=== PATIENT | female | born 2000 | race Caucasian/White ===

== ENCOUNTER 2021-06-10 05:43 | Outpatient (CLI) | payer BC ==
[2021-06-10 07:06] VITALS: BP 123/62; PULSE 75; RESP 16; TEMP 97
--- NOTE | 2021-06-10 12:06 | P.MSEPDOC ---
Presenting Problems - Arrival Data Date of Arrival on Unit: 06/10/21 Time of Arrival on Unit: 05:43 Mode of Transport: Wheelchair - Complaint OB-Reason for Admission/Chief Complaint: Rule Out SROM Comment: Patient presents to triage with complaints of possible rupture of membranes around 0330 this am for what she thinks is clear fluid, states she had intercourse around 0200 this am, patient denies needing to wear a pad in, just that she noted her underwear to be wet. Medical History - Information : 2 Para: 1 Term: 1 : 0 Abortions: Spontaneous or Elective: 0 Number of Living Children: 1 - Gestational Age Gestational Age by ROBYN (wks/days): 38 Weeks and 1 Days - History Complications: GDM Comment: Diet controlled Review of Systems - Review of Systems Constitutional: No problems Breast: No problems ENT: No problems Cardiovascular: No problems Respiratory: No problems Gastrointestinal: No problems Genitourinary: No problems Musculoskeletal: No problems Neurological: No problems Skin: No problems Vital Signs - Temperature Temperature: 97.0 F Temperature Source: Temporal Artery Scan - Pulse Pulse Oximetery Pulse Rate: 75 Pulse Assessment Method: Pulse Oximetry - Respirations Respiratory Rate: 16 Oxygen Delivery Method: Room Air - Blood Pressure Sitting Blood Pressure: 123/62 Blood Pressure Mean: 82 Blood Pressure Source: Automatic Cuff Medical Screen Scoring - Cervical Exam Dilation (cm): 1.5 Effacement (%): 60 Station: -2 Membranes: Intact - Uterine Contractions Frequency From (mins): 1 Frequency To (mins): 5 Duration From (seconds): 70 Duration To (seconds): 110 Intensity: Mild Resting: Soft to palpation - Assessment - Baby A Baseline FHR: 125 Heart Rate - NICHD Category: Category I (Normal) Physician Notification - Physician Notified Physician Notified Date: 06/10/21 Physician Notified Time: 06:11 Physician: Lakshmi Perry New Order Received: Yes - Notification Comment Comment: Orders given to monitor patient for one hour and recheck cervix, if no change made discharge patient home, if cervical change made call physician with report. May orally hydrate patient at this time. Maternal Triage Index - Urgent/Priority 2 Urgent Priority 2: Yes Provider Notified: Lakshmi Perry Provider Notified Time: 06:11 Criteria Met for Priority 2: Patient 37 weeks, Patient presents with possible SROM around 0330 for "clear fluid" Patient having regular contractions per toco, but states they feel like "tightening" Patient had intercourse around 0200 Disposition - Disposition OB Disposition: Discharge to home Discharge Date: 06/10/21 Discharge Time: 07:05 I agree with the RN Medical Screening Exam: Yes Case reviewed; plan agreed upon as documented in EMR&OBIX.: Yes Diagnosis: FALSE LABOR AT OR AFTER 37 COMPLETED WEEKS OF GESTATION
== END 2021-06-10 07:05 | disposition home or self-care (01) ==
LOC: FBPOP 05:43
PROVIDERS: ATTEND Obstetrics & Gynecology
DX: O47.1 False labor at or after 37 completed weeks of gestation (principal); Z3A.38 38 weeks gestation of pregnancy
CPT/HCPCS: 59025; 84112; 99213

== ENCOUNTER 2021-06-14 15:09 | Inpatient (IN) | payer BC, OTHER ==
[2021-06-14] MEDS ORDERED: TERBUTALINE 1 MG/ML VIAL SQ PRN (15:40)
[2021-06-14] MEDS ORDERED: LIDOCAINE 0.5% (PF) 5 MG/ML (50 ML SDV) SQ PRN (15:40)
[2021-06-14] MEDS ORDERED: CARBOPROST TROMETHAMINE 250 MCG/ML 1 ML AMP IM PRN (15:40)
[2021-06-14] MEDS ORDERED: METHYLERGONOVINE 0.2 MG/ML 1 ML AMP IM PRN (15:40)
[2021-06-14] MEDS ORDERED: OXYTOCIN 10 UNIT/ML 1 ML VIAL IM PRN (15:40)
[2021-06-14] MEDS ORDERED: OXYTOCIN 30 UNITS/500 ML NS 30 UNIT in SALINE 1 500ML.BAG IV SCH (15:45)
[2021-06-14 16:01] LABS: Glucose,Whole Blood 82 mg/dL (75-99)
[2021-06-14 16:28] LABS: Basophils % (A) 0 %; Eosinophils # (A) 0.1 k/uL (0-0.7); Eosinophils % (A) 1 %; HCT 33.4 % (34.0-46.0); HGB 11.4 gm/dL (11.4-16.0); Lymphocytes # (A) 2.1 k/uL (1.0-4.8); Lymphocytes % (A) 17 %; MCH 28.3 pg (25.0-35.0); MCHC 34.1 g/dL (31.0-37.0); MCV 82.9 fL (80.0-100.0); Mean Platelet Volume 7.6; Monocytes # (A) 0.6 k/uL (0-1.0); Monocytes % (A) 5 %; Neutrophils # (A) 9.2 k/uL (1.3-7.7); Neutrophils % (A) 75 %; Platelet Count 237 k/uL (150-450); RBC 4.03 m/uL (3.80-5.40); RDW 15.6 % (11.5-15.5); WBC 12.3 k/uL (3.8-10.6)
[2021-06-14] MEDS: LACTATED RINGERS 1,000 ML IV SCH ×2 (16:33→19:22)
[2021-06-14] MEDS ORDERED: ROPIVACAINE 5MG/ML 20ML VIAL ONE (19:00)
[2021-06-14] MEDS ORDERED: fentaNYL (PF) 50 MCG/ML 5 ML AMP ONE (19:00)
[2021-06-14] MEDS ORDERED: SODIUM CHLORIDE 0.9% 100 ML BAG ONE (19:00)
[2021-06-14] MEDS ORDERED: ZOLPIDEM 5 MG TAB PO PRN (19:46)
[2021-06-14] MEDS ORDERED: diphenhydrAMINE 25 MG CAP PO PRN (19:46)
[2021-06-14] MEDS ORDERED: BENZOCAINE/MENTHOL SPRAY 1 GM/SPRAY AEROSOL TOPICAL PRN (19:46)
[2021-06-14] MEDS ORDERED: HYDROCORTISONE 2.5% RECTAL CREAM 30 GM TUBE RECTAL PRN (19:46)
[2021-06-14] MEDS ORDERED: LANOLIN CREAM 5 GM TUBE TOPICAL PRN (19:46)
[2021-06-14] MEDS ORDERED: ACETAMINOPHEN ORAL SUSP 160 MG/5 ML CUP PO PRN (19:46)
[2021-06-14] MEDS ORDERED: SIMETHICONE 80 MG CHEWABLE PO PRN (19:46)
[2021-06-14] MEDS ORDERED: diphenhydrAMINE 50 MG/ML 1 ML VIAL IVP PRN ×2 (19:46)
[2021-06-14] MEDS ORDERED: diphenhydrAMINE 50 MG CAP PO PRN (19:46)
[2021-06-14] MEDS ORDERED: MEASLES-MUMPS-RUBELLA VACC/PF 12,500 UNIT/0.5 ML VIAL SQ ONE (19:46)
--- NOTE | 2021-06-14 19:50 | P.HPOB ---
History of Present Illness H&P Date: 06/14/21 Chief Complaint: Uterine at term: Prom Jorge is a 20-year-old at 38 weeks gestation who ryes following spontaneous rupture of membranes. She was not elpidio and was not in labor prior to spontaneous rupture membranes. Light meconium is noted. heart tones reveal a category 1 tracing. She is a patient of and was a transfer at proximally 27 weeks 2 her care. Her has been, complicated by gestational diabetes for which she was diet controlled and did see maternal medicine. Her Precis is further, complicated by a notation that she is a carrier for cystic fibrosis and the father of the baby is also a carrier for cystic fibrosis. 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 She has been followed very closely by Dr. Guajardo as well as by maternal- medicine and has had serial ultrasounds and nonstress tests. Overall she is feeling well at this time we'll plan Pitocin augmentation of labor and she expects using epidural for analgesia. At this time she is feeling well and dilated to 3 cm 90% effaced and -2 station. Past Medical History Past Medical History: Diabetes Mellitus Additional Past Medical History / Comment(s): GDM diet controlled History of Any Multi-Drug Resistant Organisms: None Reported Past Surgical History: No Surgical Hx Reported Past Anesthesia/Blood Transfusion Reactions: No Reported Reaction Past Psychological History: No Psychological Hx Reported Smoking Status: Former smoker - Past Family History Mother Family Medical History: No Reported History Medications and Allergies Home Medications Medication Instructions Recorded Confirmed Type Bvv409/Iron/FA/O3/Dha/Epa/Fish 1 each PO DAILY 06/10/21 06/14/21 History [ Multi-Dha Softgel] Allergies Allergy/AdvReac Type Severity Reaction Status Date / Time No Known Allergies Allergy Verified 06/14/21 15:15 Exam Osteopathic Statement: *. No significant issues noted on an osteopathic structural exam other than those noted in the History and Physical/Consult. Vital Signs Temp Pulse Resp BP Pulse Ox 06/14/21 16:16 97.4 F L 82 16 125/63 98 06/14/21 16:10 97.4 F L 82 16 125/63 98 Intake and Output 06/14/21 06/14/21 06/14/21 06:59 14:59 22:59 Other: Weight 88.904 kg - OBG Physical Exam Breast: both: normal (no masses) Abdomen: bowel sounds normal, no diffuse tenderness, no bruit present, no guarding noted, no hepatomegaly, no splenomegaly, no mass Vulva: both: normal Vagina: normal moisture, no discharge Cervix: no lesion, no discharge Uterus: normal size, normal contour Adnexa: both: normal Anus/Rectum: normal perianal skin, no rectal mass, no hemorrhoids, heme negative Results Result Diagrams: 06/14/21 16:15 Abnormal Lab Results - Last 24 Hours (Table) 06/14/21 Range/Units 16:15 WBC 12.3 H (3.8-10.6) k/uL Hct 33.4 L (34.0-46.0) % RDW 15.6 H (11.5-15.5) % Neutrophils # 9.2 H (1.3-7.7) k/uL
--- NOTE | 2021-06-14 19:52 | P.PROBDLV ---
Vaginal Delivery Note - . Vaginal Delivery Note: I was called into the patient's room for variable decelerations and rapid progression of labor. When I checked her she was complete and +2 station. heart tones did recover and were in the 120s following the deceleration. At this point she was allowed to push with her contractions. heart rate did decent decrease into the 60s to 70s during pushing but recovered quickly following resolution of the contraction. She pushed approximately 4 times or with 4 contractions before head was and delivered from right occiput anterior position. Interim posterior shoulders were easily delivered followed by the remainder the baby. Mouth nares were then bulb suctioned and baby was placed on mother's abdomen where it small baby was noted and due to same umbilical cords lap pulsate for 30 seconds prior to clamping and cutting with nursery personnel present to assume care. Placenta was then delivered intact and Pitocin was added to the IV. A prescription. Lacerations noted and repaired in interrupted fashion with 3-0 Vicryl following 1% Xylocaine for analgesia. scores were 8 and 9 at one and 5 minutes Delmis and the weight is 5 lbs. 2 oz. She and baby appear stable following delivery.
[2021-06-14] MEDS: IBUPROFEN 600 MG TAB PO SCH (20:44)
[2021-06-14] MEDS: SENNOSIDES-DOCUSATE SODIUM 1 EACH TAB PO SCH (22:06)
[2021-06-15] MEDS: IBUPROFEN 600 MG TAB PO SCH ×3 (06:37→20:22)
--- NOTE | 2021-06-15 08:13 | P.PNOBGVD ---
Subjective - Subjective Principal diagnosis: post day 1 Interval history: Yaquelin Michelle is seen and evaluated this morning. Overall she is doing well. Her vital signs are stable and afebrile. Heart regular, lungs clear, extremities without pain. Abdomen soft and uterus is firm. We'll plan to continue current care for now with likely discharge home tomorrow. All other questions are answered this time continue current care. Patient reports: Reports appetite normal, Reports voiding normally, Reports pain well controlled, Reports ambulating normally : doing well Objective - Latest Vital Signs Latest vital signs: Vital Signs Temp Pulse Resp BP Pulse Ox 06/15/21 00:10 98.3 F 82 17 123/76 97 06/14/21 21:44 97.3 F L 83 18 112/59 06/14/21 21:14 84 18 123/58 06/14/21 20:43 97.7 F 71 17 123/72 06/14/21 20:29 80 17 128/58 06/14/21 20:14 74 17 118/56 06/14/21 19:59 94 17 128/56 06/14/21 19:44 97.8 F 85 18 132/61 06/14/21 16:16 97.4 F L 82 16 125/63 98 06/14/21 16:10 97.4 F L 82 16 125/63 98 Intake and Output 06/14/21 06/15/21 06/15/21 22:59 06:59 14:59 Intake Total 1670.117 Balance 1670.117 Intake: IV 1500 Intake, IV Titration 170.117 Amount Oxytocin 30 Units/500 ml 170.117 Ns 30 unit In Saline 1 500ml.bag @ Per Protocol IV .Q0M [facility] Rx#:[id number] Other: # Voids 1 1 Weight 88.904 kg - Labs Labs: Abnormal Lab Results - Last 24 Hours (Table) 06/14/21 Range/Units 16:15 WBC 12.3 H (3.8-10.6) k/uL Hct 33.4 L (34.0-46.0) % RDW 15.6 H (11.5-15.5) % Neutrophils # 9.2 H (1.3-7.7) k/uL
[2021-06-15] MEDS: SENNOSIDES-DOCUSATE SODIUM 1 EACH TAB PO SCH (09:58)
[2021-06-15 16:40] VITALS: BP 129/64; PULSE 70; RESP 15; TEMP 98.1
== END 2021-06-15 22:04 | disposition home or self-care (01) | DRG 807 ==
LOC: FBPOP 15:09 → 4FBP 15:34
PROVIDERS: ADMIT Obstetrics & Gynecology; ATTEND Obstetrics & Gynecology
PROC: 00HU33Z Insertion of Infusion Device into Spinal Canal, Percutaneous Approach (ICD-10-PCS; principal; 2021-06-14)
PROC: 10E0XZZ Delivery of Products of Conception, External Approach (ICD-10-PCS; principal; 2021-06-14)
PROC: 3E0R3BZ Introduction of Anesthetic Agent into Spinal Canal, Percutaneous Approach (ICD-10-PCS; principal; 2021-06-14)
PROC: 3E0134Z Introduction of Serum, Toxoid and Vaccine into Subcutaneous Tissue, Percutaneous Approach (ICD-10-PCS; 2021-06-14)
DX: O42.02 Full-term premature rupture of membranes, onset of labor within 24 hours of rupture (principal); Z37.0 Single live birth; O24.420 Gestational diabetes mellitus in childbirth, diet controlled; O77.0 Labor and delivery complicated by meconium in amniotic fluid; O76 Abnormality in fetal heart rate and rhythm complicating labor and delivery; Z23 Encounter for immunization; Z3A.38 38 weeks gestation of pregnancy; Z14.1 Cystic fibrosis carrier; Z87.891 Personal history of nicotine dependence; Z79.899 Other long term (current) drug therapy
CPT/HCPCS: 59025; 85025; 86850; 86900; 86901; 88307; 99213